=== PATIENT | male | born 1975 | race African-American/Black ===

== ENCOUNTER 2016-09-10 14:45 | Emergency (ER) | payer BC ==
[2016-09-10 15:07] VITALS: BP 135/76
--- NOTE | 2016-09-10 15:16 | PHYS DOC ---
Past Medical History Past Medical History: No Pertinent History Past Surgical History: No Surgical History Additional Information: VAPE Alcohol Use: Occasionally Drug Use: Marijuana Adult General Chief Complaint Chief Complaint: HAND PROBLEM HPI HPI Patient is a 41 year old male who presents with mild right hand pain that began 3 days ago after punching a wall. Review of Systems Review of Systems Constitutional: Denies fever or chills [] Musculoskeletal: mild right hand pain Integument: Denies rash or skin lesions [] Neurologic: Denies headache, focal weakness or sensory changes [] Endocrine: Denies polyuria or polydipsia [] Allergies Allergies Allergies Coded Allergies Type Severity Reaction Last Updated Verified No Known Drug Allergies 04/14/15 No Physical Exam Physical Exam Constitutional: Well developed, well nourished, no acute distress, non-toxic appearance. [] Skin: Warm, dry, no erythema, no rash. [] Back: No tenderness, no CVA tenderness. [] Extremities: Right dorsal hand with moderate swelling. Tenderness on palpation of the right dorsal hand third fourth and fifth metacarpals. Limited range of motion to the right hand due to pain and swelling. +2 right radial pulse. Cap refill less than 2 seconds the right fingers. Adequate ulna radial and medial sensation to the right hand. Neurologic: Alert and oriented X 3, normal motor function, normal sensory function, no focal deficits noted. [] Psychologic: Affect normal, judgement normal, mood normal. [] Current Patient Data Vital Signs Vital Signs Date Time Temp Pulse Resp B/P Pulse Ox O2 Delivery O2 Flow Rate FiO2 09/10/16 15:07 98.3 84 18 98 Room Air 98.3 EKG EKG [] Radiology/Procedures Radiology/Procedures []PROCEDURE: HAND RIGHT 3V Indication injury, pain. AP oblique and lateral views of the right hand were obtained. There is an acute, traumatic, fracture of the fifth metacarpal neck with some associated impaction and angular deformity. Some associated soft tissue swelling is seen. IMPRESSION: Fractured fifth metacarpal DICTATED and SIGNED BY: TYRESE FINNEGAN MD DATE: 09/10/16 1600 CC: ANTONIETA VALENTINO APRN; NO PCP ~ Course & Med Decision Making Course & Med Decision Making Pertinent Labs and Imaging studies reviewed. (See chart for details) Patient is in the ED with right hand pain after punching a wall 3 days ago. Right hand x-ray noted for fifth Metacarpal fracture. Patient was placed in a ulnar gutter splint by Obdulia. Neurovascular exam done by Shiv is normal , cap refill less than 2 seconds. Ice elevation encouraged. Follow-up with orthopedic doctor by calling his office today or tomorrow for follow-up. Provided return precautions and discharged in stable condition. Dragon Disclaimer Dragon Disclaimer This electronic medical record was generated, in whole or in part, using a voice recognition dictation system. Departure Departure Impression: Primary Impression: Fracture of fifth metacarpal bone of right hand Disposition: HOME, SELF-CARE Condition: STABLE Referrals: NO PCP (PCP) CHELSIE STEWARD MD Call his office today and get a follow-up appointment Patient Instructions: Hand Fracture, Fifth Metacarpal Additional Instructions: You have fracture of the fifth metacarpal on your right hand. Keep the hand elevated, apply ice to it. Follow-up with the provided orthopedic doctor by calling his office today or tomorrow morning. Scripts Naproxen 500 Mg Tablet.dr1 Tab PO BID #60 TAB Ref 2 Prov:ANTONIETA VALENTINO APRN 09/10/16 Hydrocodone/Apap 5-325 ([place] 5-325 Tablet)1 Each Tablet1-2 Tab PO Q4-6HRS #20 TAB Prov:ANTONIETA VALENTINO APRN 09/10/16 Problem Qualifiers Primary Impression: Fracture of fifth metacarpal bone of right hand Encounter type: initial encounter Fracture type: closed Metacarpal location : shaft Fracture alignment: displaced Qualified Code: S62.326A - Displaced fracture of shaft of fifth metacarpal bone, right hand, initial encounter for closed fracture ANTONIETA VALENTINO APRN Sep 10, 2016 15:16
[2016-09-10] MEDS ORDERED: HYDR-971 PO (16:02)
[2016-09-10] MEDS ORDERED: NAPR500T8 PO (16:02)
--- NOTE | 2016-09-10 16:03 | RAD ---
Indication injury, pain. AP oblique and lateral views of the right hand were obtained. There is an acute, traumatic, fracture of the fifth metacarpal neck with some associated impaction and angular deformity. Some associated soft tissue swelling is seen. IMPRESSION: Fractured fifth metacarpal
== END 2016-09-10 16:11 | disposition home or self-care (01) ==
LOC: ER 14:45
DX: S62.326A Displaced fracture of shaft of fifth metacarpal bone, right hand, initial encounter for closed fracture (principal); F12.10 Cannabis abuse, uncomplicated; W22.01XA Walked into wall, initial encounter; Y93.89 Activity, other specified; Y92.89 Other specified places as the place of occurrence of the external cause; Y99.8 Other external cause status
CPT/HCPCS: 29125; 73130; 99284-25